=== PATIENT | female | born 2005 | race Caucasian/White ===

== ENCOUNTER 2025-08-14 21:36 | Emergency (ER) | payer OTHER ==
[~2025-08-14] VITALS: Ht 177.8 cm; Wt 65.9 kg
[2025-08-14 21:40] VITALS: BP 137/78; PULSE 82; RESP 16; TEMP 98.2; O2SAT 100
== END 2025-08-14 22:07 | disposition left against medical advice (07) ==
LOC: EMS 21:50
DX: R21 Rash and other nonspecific skin eruption (principal); Z53.21 Procedure and treatment not carried out due to patient leaving prior to being seen by health care provider
CPT/HCPCS: 99281; Z7502